=== PATIENT | female | born 1995 | race Caucasian/White ===

== ENCOUNTER 2018-05-24 19:50 | Emergency (ER) | payer SELFPAY ==
[~2018-05-24] VITALS: Ht 165.1 cm; Wt 74.2 kg
[2018-05-24 19:56] VITALS: BP 130/81
[2018-05-24] MEDS ORDERED: ACETAMINOPHEN 500 MG TABLET PO ONE (20:00)
[2018-05-24] MEDS ORDERED: ACETAMINOPHEN 500 MG TABLET ONE (20:05)
[2018-05-24] MEDS ORDERED: DEXAMETHASONE 4 MG TABLET ONE (20:05)
[2018-05-24] MEDS ORDERED: DEXAMETHASONE 4 MG TABLET PO ONE (20:30)
== END 2018-05-24 20:56 | disposition home or self-care (01) ==
LOC: ED 20:50
DX: J02.0 Streptococcal pharyngitis (principal)
CPT/HCPCS: 99283